=== PATIENT | female | born 1985 | race African-American/Black ===

== ENCOUNTER 2017-09-11 09:18 | Emergency (ER) | payer BC ==
[2017-09-11] MEDS ORDERED: KETOROLAC TROMETHAMINE 60 MG/2 ML SDV IM ONE (11:21)
--- NOTE | 2017-09-11 11:23 | ER Document Report ---
ED General - General Chief Complaint: Chest Wall Pain Stated Complaint: THROAT AND CHEST PAIN Time Seen by Provider: 09/11/17 11:17 Mode of Arrival: Ambulatory Information source: Patient Notes: 32-year-old female presents with complaints of sore throat body aches loss of voice nonproductive cough and chest wall pain of 2 day duration. Patient has multiple sick contacts at work. TRAVEL OUTSIDE OF THE [place] IN LAST 30 DAYS: No - HPI Onset: Other Onset/Duration: Persistent Quality of pain: Achy Severity: Mild Pain Level: 1 Associated symptoms: Body/muscle aches, Chills, Fever, Sore throat Exacerbated by: Denies Relieved by: Denies Similar symptoms previously: No Recently seen / treated by doctor: No - Related Data Allergies/Adverse Reactions: No Known Allergies Allergy (Verified 09/11/17 09:21) Past Medical History - Social History Smoking Status: Never Smoker Cigarette use (# per day): No Chew tobacco use (# tins/day): No Smoking Education Provided: No Family History: Reviewed & Not Pertinent - Immunizations Hx Diphtheria, Pertussis, Tetanus Vaccination: Yes Review of Systems - Review of Systems Notes: REVIEW OF SYSTEMS: CONSTITUTIONAL : admits to fevers chills EENT: admits to sore throat CARDIOVASCULAR: Denies chest pain. Denies palpitations or racing or irregular heart beat. Denies ankle edema. RESPIRATORY: admits to dry cough GASTROINTESTINAL: Denies abdominal pain or distention. Denies nausea, vomiting , or diarrhea. Denies blood in vomitus, stools, or per rectum. Denies black, tarry stools. Denies constipation. GENITOURINARY: Denies difficulty urinating, painful urination, burning, frequency, blood in urine, or discharge. FEMALE GENITOURINARY: Denies vaginal bleeding, heavy or abnormal periods, irregular periods. Denies vaginal discharge or odor. MUSCULOSKELETAL: Denies back or neck pain or stiffness. Denies joint pain or swelling. SKIN: Denies rash, lesions or sores. HEMATOLOGIC : Denies easy bruising or bleeding. LYMPHATIC: Denies swollen, enlarged glands. NEUROLOGICAL: Denies confusion or altered mental status. Denies passing out or loss of consciousness. Denies dizziness or lightheadedness. Denies headache. Denies weakness or paralysis or loss of use of either side. Denies problems with gait or speech. Denies sensory loss, numbness, or tingling. Denies seizures. PSYCHIATRIC: Denies anxiety or stress. Denies depression, suicidal ideation, or homicidal ideation. ALL OTHER SYSTEMS REVIEWED AND NEGATIVE. PHYSICAL EXAMINATION: GENERAL: Well-appearing, well-nourished and in no acute distress. HEAD: Atraumatic, normocephalic. EYES: Pupils equal round and reactive to light, extraocular movements intact, conjunctiva are normal. ENT: Nares patent, oropharynx clear without exudates. Moist mucous membranes. bilateral tonsillar erythema, no exudates, squeaky voice NECK: Normal range of motion, supple without lymphadenopathy LUNGS: Breath sounds clear to auscultation bilaterally and equal. No wheezes rales or rhonchi. HEART: Regular rate and rhythm without murmurs ABDOMEN: Soft, nontender, nondistended abdomen. No guarding, no rebound. No masses appreciated. Female : deferred Musculoskeletal: Normal range of motion, no pitting or edema. No cyanosis. NEUROLOGICAL: Cranial nerves grossly intact. Normal speech, normal gait. Normal sensory, motor exams PSYCH: Normal mood, normal affect. SKIN: Warm, Dry, normal turgor, no rashes or lesions noted. Dictation was performed using [employer] voice recognition software Physical Exam - Vital signs Vitals: Temp Pulse Resp BP Pulse Ox 100.0 F 105 H 18 127/76 H 95 09/11/17 09:25 09/11/17 09:25 09/11/17 09:25 09/11/17 09:25 09/11/17 09:25 Course - Re-evaluation Re-evalutation: 09/11/17 11:23 Patient's temperature upon arrival is 100.0, she has obvious laryngitis airways patent rapid strep pending we do not have capabilities to test for flu and Tamiflu was offered the patient risks and benefits discussed 09/11/17 12:23 Rapid strep was negative patient noted improvement after Toradol, I will treat her as a viral syndrome After performing a Medical Screening Examination, I estimate there is LOW risk for ACUTE CORONARY SYNDROME, PULMONARY EMBOLI, RESPIRATORY FAILURE, SEPSIS OR MENINGITIS, thus I consider the discharge disposition reasonable. I have reevaluated this patient multiple times and no significant life threatening changes are noted. The patient and I have discussed the diagnosis and risks, and we agree with discharging home with close follow-up. We also discussed returning to the Emergency Department immediately if new or worsening symptoms occur. We have discussed the symptoms which are most concerning (e.g., changing or worsening pain, trouble swallowing or breathing, neck stiffness, fever) that necessitate immediate return. - Vital Signs Vital signs: Temp Pulse Resp BP Pulse Ox 100.0 F 105 H 18 127/76 H 95 09/11/17 09:25 09/11/17 09:25 09/11/17 09:25 09/11/17 09:25 09/11/17 09:25 Discharge - Discharge Clinical Impression: Laryngitis Fever Qualifiers: Fever type: unspecified Qualified Code(s): R50.9 - Fever, unspecified Condition: Stable Disposition: HOME, SELF-CARE Instructions: Chest Wall Pain ([facility]), Laryngitis ([facility]) Additional Instructions: Follow up with your physician tomorrow for further care or return to the ED IMMEDIATELY if symptoms worsen or new concerns occur. If you cannot afford to follow up with your primary care physician a list of low cost clinics have been provided at the end of your discharge papers as well. Prescriptions: Hydrocodone Bit/Homatropine [Hycodan 5-1.5 mg Tablet] 1 tab PO Q4HP PRN #24 tablet PRN Reason:
[2017-09-11 12:43] VITALS: BP 110/74
== END 2017-09-11 12:42 | disposition home or self-care (01) ==
LOC: ER 09:18
DX: J04.0 Acute laryngitis (principal); R50.9 Fever, unspecified; M79.1 Myalgia
CPT/HCPCS: 87070; 87077; 87880; 96372; 99284; J1885

== ENCOUNTER 2018-01-29 19:46 | Emergency (ER) | payer OTHER, BC ==
[2018-01-29] MEDS ORDERED: DIPH/PERTUSS(ACELL)/TETANUS VAC/PF 0.5 ML SYR (>=10YO) IM ONE (22:02)
[2018-01-29] MEDS ORDERED: HYDROCODONE/ACETAMINOPHEN 5-325 MG TABLET PO ONE (22:02)
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
[2018-01-30 00:44] VITALS: BP 119/77
== END 2018-01-30 00:45 | disposition home or self-care (01) ==
LOC: ER 19:46
DX: S16.1XXA Strain of muscle, fascia and tendon at neck level, initial encounter (principal); R10.9 Unspecified abdominal pain; R03.0 Elevated blood-pressure reading, without diagnosis of hypertension; R51 Headache; M25.512 Pain in left shoulder; M25.552 Pain in left hip; V43.52XA Car driver injured in collision with other type car in traffic accident, initial encounter
CPT/HCPCS: 72125; 99284

== ENCOUNTER 2018-02-01 10:27 | Emergency (ER) | payer OTHER, BC ==
[2018-02-01 10:35] VITALS: BP 126/67
[2018-02-01] MEDS ORDERED: DEXAMETHASONE SOD PHOS INJ 10 MG/1 ML VIAL IM ONE (11:12)
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
== END 2018-02-01 12:47 | disposition home or self-care (01) ==
LOC: ER 10:27
DX: S16.1XXA Strain of muscle, fascia and tendon at neck level, initial encounter (principal); M54.2 Cervicalgia; V49.40XA Driver injured in collision with unspecified motor vehicles in traffic accident, initial encounter
CPT/HCPCS: 99282; 96372; J1100

== ENCOUNTER 2018-07-04 22:02 | Emergency (ER) | payer BC, MEDICAID, OTHER ==
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
[2018-07-05] MEDS ORDERED: LIDOCAINE 5% (700 MG) TRANSDERMAL ADH..PATCH TP ONE (00:07)
[2018-07-05] MEDS ORDERED: KETOROLAC TROMETHAMINE 60 MG/2 ML SDV IM ONE (00:07)
--- NOTE | 2018-07-05 00:09 | ER Document Report ---
ED General - General Chief Complaint: Wrist Pain Stated Complaint: LEFT WRIST PAIN Time Seen by Provider: 07/04/18 23:04 Notes: Patient is a 32-year old female without chronic medical problems who presents with 1-2 months of progressive worsening pain to her left wrist related to a cyst on the dorsal radial aspect of the wrist. Patient states that the cyst has been present for some time is been getting larger. She describes a throbbing, severe, aching pain to the area. She has not tried anything to improve the pain. Touching the area worsens the pain. She has not seen her general physician regarding today's concerns. Nothing is new or different regarding her symptoms that prompted a visit to the emergency department tonight. Denies any focal weakness or numbness. No fever or constitutional symptoms. TRAVEL OUTSIDE OF THE [place] IN LAST 30 DAYS: No - Related Data Allergies/Adverse Reactions: No Known Allergies Allergy (Verified 02/01/18 10:56) Past Medical History - General Information source: Patient - Social History Smoking Status: Never Smoker Frequency of alcohol use: Rare Drug Abuse: None Lives with: Spouse/Significant other Family History: Reviewed & Not Pertinent Patient has suicidal ideation: No Patient has homicidal ideation: No Renal/ Medical History: Denies: Hx Peritoneal Dialysis - Immunizations Hx Diphtheria, Pertussis, Tetanus Vaccination: Yes Review of Systems - Review of Systems Notes: Constitutional: Negative for fever. HENT: Negative for sore throat. Eyes: Negative for visual changes. Cardiovascular: Negative for chest pain. Respiratory: Negative for shortness of breath. Gastrointestinal: Negative for abdominal pain, vomiting or diarrhea. Genitourinary: Negative for dysuria. Musculoskeletal: Positive for left wrist pain. Skin: Positive for cystic structure of the left wrist Neurological: Negative for headaches, weakness or numbness. 10 point ROS negative except as marked above and in HPI. Physical Exam - Vital signs Vitals: Temp Pulse Resp BP Pulse Ox 98.7 F 108 H 16 120/58 L 95 07/04/18 22:07 07/04/18 22:07 07/04/18 22:07 07/04/18 22:07 07/04/18 22:07 Interpretation: Tachycardic - Resolved at the time of my assessment Notes: PHYSICAL EXAMINATION: GENERAL: Well-appearing, well-nourished and in no acute distress. HEAD: Atraumatic, normocephalic. EYES: sclera anicteric, conjunctiva are normal. ENT: Moist mucous membranes. NECK: Normal range of motion LUNGS: Normal work of breathing HEART: 2+ radial pulses bilaterally, capillary refill less than 1 second in all digits of the left hand EXTREMITIES: Full flexion and extension of the left wrist. RMU motor and sensory distribution is intact bilaterally. NEUROLOGICAL: No focal neurological deficits. Moves all extremities spontaneously and on command. PSYCH: Normal mood, normal affect. SKIN: Warm, Dry, normal turgor, there is a cystic lesion to the radial dorsal aspect of the left wrist. No significant fluctuance. No erythema. Course - Re-evaluation Re-evalutation: 07/05/18 00:08 Patient presents with several weeks of progressively worsening pain over her left breast where she does have what appears to be a relatively large sebaceous cyst. No evidence of abscess. Normal wrist flexion and extension. RMU motor and sensory distribution intact. X-ray unremarkable. I advised the patient that this will require a dermatology referral for marsupialization of the cyst and removal. Patient is understanding, agrees with need for follow-up. Pain control with Toradol has been provided. At this time will discharge with return precautions and follow-up recommendations. Verbal discharge instructions given a the bedside and opportunity for questions given. Medication warnings reviewed. Patient is in agreement with this plan and has verbalized understanding of return precautions and the need for primary care follow-up in the next 24-72 hours. - Vital Signs Vital signs: Temp Pulse Resp BP Pulse Ox 98.7 F 108 H 16 120/58 L 95 07/04/18 22:07 07/04/18 22:07 07/04/18 22:07 07/04/18 22:07 07/04/18 22:07 - Diagnostic Test Radiology reviewed: Image reviewed, Reports reviewed Radiology results interpreted by me: 07/05/18 00:29 Left wrist x-ray: No acute fracture Discharge - Discharge Clinical Impression: Left wrist pain, Synovial cyst of left wrist Condition: Good Disposition: HOME, SELF-CARE Additional Instructions: For your pain: Take ibuprofen 600 mg and acetaminophen 1000 mg every 6 hours together as needed for pain. Apply ice to the area 20 minutes every 2 hours as needed for additional pain. Apply the Michele wrap as needed to help provide additional comfort. Please follow-up with your primary care doctor for dermatology referral for cyst removal. Return if the area becomes increasingly painful, you develop fever greater than 100.4 F, if increasing redness in the area, or have any other symptoms that are worrisome to you.
[2018-07-05 00:39] VITALS: BP 116/69
== END 2018-07-05 00:45 | disposition home or self-care (01) ==
LOC: ER 22:02
DX: M71.332 Other bursal cyst, left wrist (principal); M25.532 Pain in left wrist
CPT/HCPCS: 99283; 96372; 73110; J1885; J3490

== ENCOUNTER 2018-10-07 08:28 | Emergency (ER) | payer MEDICAID ==
[2018-10-07 09:51] LABS: APPEARANCE,URINE SLIGHTLY-CLOUDY; BILIRUBIN,URINE NEGATIVE (NEGATIVE); COLOR,URINE STRAW; GLUCOSE, URINE NEGATIVE (NEGATIVE); KETONES,URINE NEGATIVE (NEGATIVE); LEUKOCYTE ESTERASE,URINE MODERATE (NEGATIVE); NITRITE,URINE NEGATIVE (NEGATIVE); PROTEIN,URINE NEGATIVE (NEGATIVE); URINE SPECIFIC GRAVITY 1.006; UROBILINOGEN,URINE NEGATIVE mg/dL (<2.0)
--- NOTE | 2018-10-07 10:41 | ER Document Report ---
ED General - General Chief Complaint: Abdominal Pain Stated Complaint: PELVIC PAIN Time Seen by Provider: 10/07/18 10:10 Primary Care Provider: KELSEY HOLDER MD [Primary Care Provider] - Follow up as needed TRAVEL OUTSIDE OF THE [place] IN LAST 30 DAYS: No - HPI Notes: Patient presents to the emergency department for evaluation of right pelvic pain. It is been present for the last 2-3 days, but started about 4 days ago. It was intermittent at first. She describes it as sharp and stabbing. She states she did have some clear, physiological sounding vaginal discharge at first. She denies any other sores or lesions but states that her external genital genital area is "tender." She is currently sexually active in a monogamous relationship. She has had this IUD in place since 2014. She states she does have a history of a bacterial infection from IUD placement. No fevers or chills. No nausea or vomiting. No urinary symptoms. Normal bowel movements. Normal appetite. - Related Data Allergies/Adverse Reactions: No Known Allergies Allergy (Verified 10/07/18 08:31) Past Medical History - General Information source: Patient - Social History Smoking Status: Never Smoker Frequency of alcohol use: None Drug Abuse: None Family History: Reviewed & Not Pertinent Patient has suicidal ideation: No Patient has homicidal ideation: No Renal/ Medical History: Denies: Hx Peritoneal Dialysis - Immunizations Hx Diphtheria, Pertussis, Tetanus Vaccination: Yes Review of Systems - Review of Systems Constitutional: No symptoms reported EENT: No symptoms reported Cardiovascular: No symptoms reported Respiratory: No symptoms reported Gastrointestinal: See HPI Genitourinary: No symptoms reported Female Genitourinary: See HPI Musculoskeletal: No symptoms reported Skin: No symptoms reported Neurological/Psychological: No symptoms reported Physical Exam - Vital signs Vitals: Temp Pulse Resp BP Pulse Ox 98.0 F 94 20 140/64 H 98 10/07/18 08:33 10/07/18 08:33 10/07/18 08:33 10/07/18 08:33 10/07/18 08:33 Interpretation: Hypertensive - Notes Notes: Vital signs reviewed, please refer to chart. Patient is normocephalic, atraumatic. Pupils equal round, reactive to light. Neck is supple without meningismus. Heart is regular rate and rhythm. Lungs are clear to auscultation bilaterally. Abdomen is soft, nontender, normoactive bowel sounds throughout. Extremities without cyanosis, clubbing, edema. Peripheral pulses are equal. Skin is warm and dry. Patient is awake, alert, neurological exam is nonfocal. Pelvic exam performed. External genitalia within normal limits. Moderate amount of whitish discharge, adherent to vaginal wall. Cervix with sequelae from procedures performed several years ago. Car tissue noted. Negative chandelier, no palpable adnexal masses but this was limited by body habitus. Course - Re-evaluation Re-evalutation: 10/07/18 10:42 Patient presents emergency department for evaluation of right pelvic pain. She has no constitutional symptoms. Her abdomen is in fact not really tender. Pelvic set up ordered, transvaginal ultrasound ordered. Urinalysis ordered and pending at this time. Will follow. 10/07/18 13:40 Given the amount of bacteria and white cells on wet mount, I do suspect that the patient has bacterial vaginosis. We will treat her as such. She is advised not to drink any alcohol while on Flagyl. She also has a right ovarian cyst. It is only 2-1/2 cm. We will send her home with anti-inflammatories. She is to follow-up with [facility]. - Vital Signs Vital signs: Temp Pulse Resp BP Pulse Ox 98.0 F 94 20 140/64 H 98 10/07/18 08:33 10/07/18 08:33 10/07/18 08:33 10/07/18 08:33 10/07/18 08:33 - Laboratory Laboratory results interpreted by me: 10/07/18 09:30 Ur Leukocyte Esterase MODERATE H Discharge - Discharge Clinical Impression: BV (bacterial vaginosis), Ovarian cyst, right Condition: Stable Disposition: HOME, SELF-CARE Instructions: Vaginosis, Bacterial ([facility]), Ovarian Cyst ([facility]) Additional Instructions: Take antibiotic as prescribed until gone. Avoid alcohol as discussed. Follow- up with your [facility] in 2-3 weeks. Return to the emergency department with worsening or new concerning symptom Referrals: KELSEY HOLDER MD [Primary Care Provider] - Follow up as needed
[2018-10-07 11:00] LABS: BACTERIA (WET MOUNT) 4+ BACTERIA SEEN; EPITHELIALS (WET MOUNT) 4+ EPITHELIALS SEEN; RBCS (WET MOUNT) RARE RBCS SEEN; T.VAGINALIS (WET MOUNT) NO TRICHOMONAS SEEN; WBCS (WET MOUNT) FEW WBCS SEEN; YEAST (WET MOUNT) NO YEAST SEEN
[2018-10-07 12:26] LABS: CHLAM PCR NOT DETECTED (NOT DETECT); GON PCR NOT DETECTED (NOT DETECT)
--- NOTE | 2018-10-07 13:07 | RADIOLOGY REPORT (SQ) ---
EXAM DESCRIPTION: U/S NON OB PEL TV W/DOPPLER COMPLETED DATE/TIME: 10/07/2018 12:54 pm REASON FOR STUDY: Right pelvic pain, eval IUD COMPARISON: None. TECHNIQUE: Dynamic and static grayscale images acquired of the pelvis via transvaginal approach and recorded on PACS. Additional selected color Doppler and spectral images recorded. LIMITATIONS: None. FINDINGS: UTERUS: Contour normal. No mass. ENDOMETRIAL STRIPE: IUD. CERVIX: No nabothian cysts. RIGHT OVARY AND DOPPLER: Normal size. 2.5 cm simple cyst. No worrisome masses. Normal arterial vasc ular flow without evidence for torsion. LEFT OVARY AND DOPPLER: Normal size. No worrisome masses. Normal arterial vascular flow without evide nce for torsion. FREE FLUID: None noted. OTHER: No other significant finding. MEASUREMENTS: UTERUS: 5.4 x 5.5 x 3.7 cm ENDOMETRIAL STRIPE: 5 mm RIGHT OVARY: 3.4 x 3.3 x 2.6 cm LEFT OVARY: 3.3 x 2.4 x 1.8 cm IMPRESSION: 1. IUD in the uterus. 2. 2.5 cm cyst right ovary. TECHNICAL DOCUMENTATION: JOB ID: [id number] [employer]- All Rights Reserved Rev-12/18 Reading location - IP/workstation name: [email or web address]
[2018-10-07 13:47] VITALS: BP 123/72
== END 2018-10-07 13:54 | disposition home or self-care (01) ==
LOC: ER 08:28
DX: N76.0 Acute vaginitis (principal); B96.89 Other specified bacterial agents as the cause of diseases classified elsewhere; N83.201 Unspecified ovarian cyst, right side; R10.9 Unspecified abdominal pain; R10.2 Pelvic and perineal pain
CPT/HCPCS: 76830; 81001; 81025; 87210; 87491; 87591; 93976; 99284

== ENCOUNTER 2020-03-29 07:08 | Day surgery (SDC) | payer MEDICAID ==
[2020-03-26 11:01] LABS: APPEARANCE,URINE SLIGHTLY-CLOUDY; BILIRUBIN,URINE NEGATIVE (NEGATIVE); COLOR,URINE YELLOW; GLUCOSE, URINE NEGATIVE (NEGATIVE); KETONES,URINE NEGATIVE (NEGATIVE); LEUKOCYTE ESTERASE,URINE LARGE (NEGATIVE); NITRITE,URINE NEGATIVE (NEGATIVE); PROTEIN,URINE NEGATIVE (NEGATIVE); URINE SPECIFIC GRAVITY 1.021
[2020-03-26 11:01] LABS: HEMATOCRIT 39.8 % (36.0-47.0); HEMOGLOBIN 13.5 g/dL (12.0-15.5); MEAN CORPUSCULAR HEMOGLOBIN 28.1 pg (27.0-33.4); MEAN CORPUSCULAR HGB CONC 33.9 g/dL (32.0-36.0); MEAN CORPUSCULAR VOLUME 83 fl (80-97); PLATELET COUNT 277 10^3/uL (150-450); RED CELL DISTRIBUTION WIDTH 13.2 % (11.5-14.0)
[~2020-03-29 07:08] MED LIST: LACTATED RINGERS 1000 ML IV PRN; LIDOCAINE 0.5% INJ-PF (5 MG/ML) 50 ML SDV SUBCUT PRN
[2020-03-29] MEDS ORDERED: ONDANSETRON HCL INJ/PF 4 MG/2 ML SDV ONE (08:30)
[2020-03-29] MEDS ORDERED: MIDAZOLAM 2 MG/2 ML INJ ONE (08:30)
[2020-03-29] MEDS ORDERED: FENTANYL CITRATE INJ/PF 100 MCG/2 ML AMPUL ONE ×2 (08:30→09:07)
[2020-03-29] MEDS ORDERED: PROPOFOL INJ 200 MG/20 ML VIAL IV ONE (08:30)
[2020-03-29] MEDS ORDERED: DEXAMETHASONE SOD PHOSPHATE INJ 4 MG/1 ML VIAL ONE (08:30)
[2020-03-29] MEDS ORDERED: MEPERIDINE HCL/PF INJ 25 MG/1 ML DISP.SYRIN IV PRN (09:07)
[2020-03-29] MEDS ORDERED: PROMETHAZINE HCL INJ 25 MG/1 ML VIAL IV PRN (09:07)
[2020-03-29] MEDS ORDERED: FENTANYL CITRATE INJ/PF 100 MCG/2 ML AMPUL IV PRN ×3 (09:07)
[2020-03-29] MEDS ORDERED: DIPHENHYDRAMINE HCL 50 MG/ML VIAL IV PRN (09:07)
[2020-03-29] MEDS ORDERED: MORPHINE SULFATE 10 MG/ML INJ IV PRN (09:07)
[2020-03-29] MEDS ORDERED: KETOROLAC TROMETHAMINE INJ/PF 30 MG/1 ML SDV IV PRN (09:26)
[2020-03-29] MEDS ORDERED: RINGERS SOLUTION,LACTATED 1,000 ML IV PRN (09:26)
[2020-03-29] MEDS ORDERED: IBUPROFEN 800 MG TABLET PO PRN (09:26)
[2020-03-29] MEDS ORDERED: OXYCODONE-ACETAMINOPHEN 5-325 MG TABLET PO PRN ×2 (09:26)
--- NOTE | 2020-03-29 09:34 | Operative Report ---
Operative Report DATE OF SURGERY: 03/29/20 PREOPERATIVE DIAGNOSIS: Patient desires laparoscopic tubal ligation with cautery POSTOPERATIVE DIAGNOSIS: Same OPERATION: Laparoscopic tubal ligation with cautery SURGEON: MAKSIM NATH ANESTHESIA: GA TISSUE REMOVED OR ALTERED: Fallopian tubes COMPLICATIONS: None ESTIMATED BLOOD LOSS: 5 cc INTRAOPERATIVE FINDINGS: Normal uterus tubes and ovaries PROCEDURE: Patient was taken the OR and placed in supine position. General anesthesia was induced. She is placed in a dorsolithotomy position using Daniel stirrups. Her abdomen perineum and vagina were prepared and draped in sterile fashion. She had just voided and did not need catheterization. A sponge stick was placed in the vagina for manipulation of the uterus. Incision was made the umbilicus natural umbilical defect was identified and dilated with Shantal clamp allowing the placement of a blunt port. Laparoscopy confirmed appropriate placement. The abdomen was insufflated with CO2 gas. The patient was placed in Trendelenburg positioning to assist with moving the bowel out of the pelvis. Each fallopian tube was identified and followed out to its fimbriated end and then cauterized at its mid isthmic portion. Each tube was cauterized with 5 successive bites moving back toward the uterine cornu. Photos were taken of the procedure. The gas was allowed to escape from the abdomen. The scope and port were removed at the same time. The fascia at the umbilicus was closed with a 2- 0 Vicryl stitch and the skin closed with 4-0 undyed Vicryl stitch. The sponge stick was removed from the vagina. Patient was placed back in supine position extubated in the OR and taken to recovery room stable condition.
--- NOTE | 2020-03-29 09:38 | Discharge Summary ---
Discharge Summary (SDC) - Discharge Final Diagnosis: Encounter for tubal ligation Date of Surgery: 03/29/20 Discharge Date: 03/29/20 Condition: Good Prescriptions: Oxycodone HCl/Acetaminophen [Percocet 5-325 mg Tablet] 1 tab PO Q4HP PRN #20 tablet PRN Reason: Ibuprofen [Motrin 800 mg Tablet] 800 mg PO Q8H PRN #30 tablet PRN Reason: Referrals: KELSEY HOLDER MD [Primary Care Provider] - Discharge Diet: Regular Discharge Activity: Balance Activity w/Rest Home Care Assistance: None Needed Report the Following to Your Physician Immediately: Nausea, Vomiting, Fever over 101 Degrees
[2020-03-29 11:39] VITALS: BP 116/77
[2020-03-29] MEDS ORDERED: SUCCINYLCHOLINE CHLORIDE INJ 200 MG/10 ML VIAL ONE (12:35)
[2020-03-29] MEDS ORDERED: ROCURONIUM BROMIDE INJ 50 MG/5 ML VIAL IV ONE (12:35)
== END 2020-03-29 11:10 | disposition home or self-care (01) ==
LOC: OROUT 07:08
PROVIDERS: ATTEND Obstetrics & Gynecology
DX: Z30.2 Encounter for sterilization (principal); Z03.818 Encounter for observation for suspected exposure to other biological agents ruled out
CPT/HCPCS: 36415; 85027; 87635; 81005; 81025; 58670; J2250; J3490; J1100; J3010; J0330; J2405; J2704; C9803